=== PATIENT | female | born 1980 | race Hispanic/Latino ===

== ENCOUNTER 2017-11-14 02:11 | Observation (INO) | payer SELFPAY ==
[2017-11-14] MEDS ORDERED: ONDANSETRON 4 MG/2 ML VIAL ONE (02:39)
[2017-11-14] MEDS ORDERED: MORPHINE 10 MG/ML VIAL ONE (02:39)
[2017-11-14 02:51] LABS: Absolute Lymphocytes (CBC) 2.5 K/uL (0.7-4.9); Absolute Monocytes 0.7 K/uL (0.1-1.3); Basophils % 0.4 % (0-1.3); Eosinophils % 1.2 % (0-4.4); Hematocrit 41.8 % (36.0-45.0); Lymphocytes % 29.9 % (15.3-44.8); MCV 88.1 fL (80-100); MPV 10.3 fL (7.6-11.3); RBC Red Blood Cell Count 4.75 M/uL (3.86-4.86)
[2017-11-14 02:55] LABS: Bicarbonate 25 mEq/L (21-31); Glucose Level 105 mg/dL (65-120); Lipase 36 U/L (22-51); Potassium 3.7 mEq/L (3.6-5.0); Sodium Level 135 mEq/L (135-145)
[2017-11-14 02:56] LABS: Urine Blood NEGATIVE (NEG); Urine Glucose NEGATIVE (NEG); Urine Protein NEGATIVE (NEG); Urine Specific Gravity 1.015 (1.005-1.030)
[2017-11-14 02:56] LABS: Urine Bacteria <20 /HPF (<20); Urine Culture Reflex Order NOT NEEDED; Urine RBC NONE SEEN /HPF (NONE SEEN)
[2017-11-14 03:02] LABS: ALT/SGPT 25 IU/L (10-60); AST/SGOT 24 IU/L (10-42); Albumin 4.1 g/dL (3.2-5.5); Alkaline Phosphatase 56 IU/L (42-121); BUN Blood Urea Nitrogen 12 mg/dL (6-20); Bilirubin Direct 0.1 mg/dL (0-0.2); Bilirubin Total 0.5 mg/dL (0.3-1.2); Protein, Total 7.8 g/dL (6.0-8.3)
[2017-11-14] MEDS ORDERED: MAGNE/ALUM HYDROXD 30 ML UCUP ONE (04:55)
--- NOTE | 2017-11-14 05:47 | EDPHYS ---
Physician Documentation [facility] Name: Latanya Mayfield Age: 37 yrs Sex: Female : 1980 Arrival Date: 11/14/2017 Time: 02:22 Bed 17 Private MD: ED Physician Hussein Caal HPI: 11/14 05:20 This 37 yrs old Female presents to ER via EMS with unknown complaint. gs 05:20 The patient presents with abdominal pain in the right upper quadrant. Onset: The gs symptoms/episode began/occurred yesterday. The symptoms do not radiate. Associated signs and symptoms: Pertinent positives: nausea. The symptoms are described as sharp. Modifying factors: The symptoms are alleviated by nothing, the symptoms are aggravated by food. Severity of pain: At its worst the pain was severe in the emergency department the pain has improved mildly. The patient has experienced similar episodes in the past, several times. dx gallstones. 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 - Social history:: Smoking status: Patient/guardian denies using tobacco. ROS: 05:43 All other systems are negative. gs Exam: 05:43 Head/Face: Normocephalic, atraumatic. Eyes: Pupils equal round and reactive to light, gs extra-ocular motions intact. Lids and lashes normal. Conjunctiva and sclera are non-icteric and not injected. Cornea within normal limits. Periorbital areas with no swelling, redness, or edema. ENT: Nares patent. No nasal discharge, no septal abnormalities noted. Tympanic membranes are normal and external auditory canals are clear. Oropharynx with no redness, swelling, or masses, exudates, or evidence of obstruction, uvula midline. Mucous membranes moist. Neck: Trachea midline, no thyromegaly or masses palpated, and no cervical lymphadenopathy. Supple, full range of motion without nuchal rigidity, or vertebral point tenderness. No Meningismus. Chest/axilla: Normal chest wall appearance and motion. Nontender with no deformity. No lesions are appreciated. Cardiovascular: Regular rate and rhythm with a normal S1 and S2. No gallops, murmurs, or rubs. Normal PMI, no JVD. No pulse deficits. Respiratory: Lungs have equal breath sounds bilaterally, clear to auscultation and percussion. No rales, rhonchi or wheezes noted. No increased work of breathing, no retractions or nasal flaring. Back: No spinal tenderness. No costovertebral tenderness. Full range of motion. Skin: Warm, dry with normal turgor. Normal color with no rashes, no lesions, and no evidence of cellulitis. MS/ Extremity: Pulses equal, no cyanosis. Neurovascular intact. Full, normal range of motion. Neuro: Awake and alert, GCS 15, oriented to person, place, time, and situation. Cranial nerves II-XII grossly intact. Motor strength 5/5 in all extremities. Sensory grossly intact. Cerebellar exam normal. Normal gait. 05:43 Constitutional: The patient appears alert, awake. 05:43 Abdomen/GI: Palpation: moderate abdominal tenderness, in the right upper quadrant. Vital Signs: 02:15 BP 137 / 86; Pulse 64; Resp 18 S; Temp 97.8(TE); Pulse Ox 97% on R/A; Weight 99.79 kg; ea Height 5 ft. 5 in. (165.10 cm); Pain 10/10; 03:17 BP 107 / 62; Pulse 64; Resp 18; Temp 97.4; Pulse Ox 98% on R/A; Pain 2/10; ag2 03:28 Pain 2/10; ea 04:53 BP 109 / 65; Pulse 67; Resp 18; Pulse Ox 100% on R/A; Pain 5/10; ag2 05:14 BP 160 / 68; Pulse 70; Resp 18 S; Pulse Ox 98% on R/A; ea 07:15 BP 129 / 72; Pulse 57; Resp 18; Pulse Ox 100% on R/A; ph 08:17 BP 122 / 78; Pulse 54; Resp 18; Temp 97.9; Pulse Ox 100% on R/A; ph 02:15 Body Mass Index 36.61 (99.79 kg, 165.10 cm) ea MDM: 02:33 Patient medically screened. 05:43 Differential diagnosis: bowel obstruction, cholecystitis, Cholelithiasis, gs gastroesophageal reflux disease. Data reviewed: vital signs, nurses notes. Response to treatment: the patient's symptoms have mildly improved after treatment, and as a result, I will admit patient. 11/14 02:34 Order name: Basic Metabolic Panel; Complete Time: 03:58 11/14 02:34 Order name: CBC with Diff; Complete Time: 03:58 11/14 02:34 Order name: Hepatic Function; Complete Time: 03:58 gs 11/14 02:34 Order name: Lipase; Complete Time: 03:58 11/14 02:34 Order name: Urine Microscopic Only; Complete Time: 03:58 11/14 02:50 Order name: Urine Dipstick--Ancillary (enter results) [facility] 11/14 02:34 Order name: Urine Test (obtain specimen); Complete Time: 02:53 11/14 02:34 Order name: IV Saline Lock; Complete Time: 02:47 11/14 02:50 Order name: Urine --Ancillary (enter results); Complete Time: 03:58 [facility] 11/14 02:51 Order name: Urine Dipstick-Ancillary; Complete Time: 03:58 EDMS 11/14 05:47 Order name: US Abdomen Limited 11/14 02:34 Order name: Labs collected and sent; Complete Time: 02:47 11/14 02:34 Order name: Urine Dipstick-Ancillary (obtain specimen); Complete Time: 02:53 gs Administered Medications: 02:46 Drug: morphine 4 mg Route: IVP; Site: right antecubital; ea 03:28 Follow up: Pain 2/10 Adult; Response: No adverse reaction; Marked relief of symptoms; ea Pain is decreased 02:46 Drug: Zofran 4 mg Route: IVP; Site: right antecubital; ea 03:29 Follow up: Response: No adverse reaction ea 05:06 Drug: Maalox Suspension (200 mg-200 mg-20 mg/5 mL) 30 ml Route: PO; ea Disposition: 11/14/17 05:46 Hospitalization ordered by Karina Yates for Observation. Preliminary diagnosis are Colic, Cholecystitis. - Bed requested for Telemetry/MedSurg (observation). - Status is Observation. iw - Condition is Stable. - Problem is new. - Symptoms are unchanged. UTI on Admission? No Signatures: Dispatcher [employer] Eliana Dorado RN RN mw Williams, Irene, RN Coral Ortega RN RN ea Starr, Gregory, MD MD gs
--- NOTE | 2017-11-14 05:47 | ER ---
Nurse's Notes [facility] Name: Latanya Mayfield Age: 37 yrs Sex: Female : 1980 Arrival Date: 11/14/2017 Time: 02:22 Bed 17 Private MD: Diagnosis: Colic;Cholecystitis Presentation: 11/14 02:15 Presenting complaint: EMS states: Pt complaining of right upper and lower abdominal ea pain, pt reported having a history of gallstones. Transition of care: patient was not received from another setting of care. Onset of symptoms was November 14, 2017. Care prior to arrival: None. 02:15 Method Of Arrival: EMS: [facility] ea 02:15 Acuity: TONYA 3 ea Triage Assessment: 02:15 General: Appears uncomfortable, Behavior is cooperative, appropriate for age, restless. ea Pain: Complains of pain in right upper quadrant and right lower quadrant Pain currently is 10 out of 10 on a pain scale. Quality of pain is described as aching, Pain began 2 hours ago. Is continuous, Noted to be grimacing, moaning. EENT: No signs and/or symptoms were reported regarding the EENT system. Neuro: Level of Consciousness is awake, alert, obeys commands, Oriented to person, place, time, situation. Cardiovascular: Patient's skin is warm and dry. Respiratory: Airway is patent Respiratory effort is even, unlabored, Respiratory pattern is regular, symmetrical. GI: Abdomen is non-distended, Bowel sounds present X 4 quads. Abdomen is tender to palpation in right upper quadrant, left upper quadrant and right lower quadrant. : No signs and/or symptoms were reported regarding the genitourinary system. Derm: Skin is pink, warm \T\ dry. 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 - Social history:: Smoking status: Patient/guardian denies using tobacco. Screenin:30 Abuse screen: Denies threats or abuse. Nutritional screening: No deficits noted. ea Tuberculosis screening: No symptoms or risk factors identified. Fall Risk None identified. Assessment: 02:48 Reassessment: see triage assessment. ea 03:20 Reassessment: Patient laying in bed with eyes closed. No s/s of distress. Patient ag2 reports pain level 2/10. Family at bedside. bed locked and low, call light within reach. . 04:46 Reassessment: Patient and/or family updated on plan of care and expected duration. Pain ea level reassessed. Patient is alert, oriented x 3, equal unlabored respirations, skin warm/dry/pink. 05:17 Reassessment:. ea Vital Signs: 02:15 BP 137 / 86; Pulse 64; Resp 18 S; Temp 97.8(TE); Pulse Ox 97% on R/A; Weight 99.79 kg; ea Height 5 ft. 5 in. (165.10 cm); Pain 10/10; 03:17 BP 107 / 62; Pulse 64; Resp 18; Temp 97.4; Pulse Ox 98% on R/A; Pain 2/10; ag2 03:28 Pain 2/10; ea 04:53 BP 109 / 65; Pulse 67; Resp 18; Pulse Ox 100% on R/A; Pain 5/10; ag2 05:14 BP 160 / 68; Pulse 70; Resp 18 S; Pulse Ox 98% on R/A; ea 07:15 BP 129 / 72; Pulse 57; Resp 18; Pulse Ox 100% on R/A; ph 08:17 BP 122 / 78; Pulse 54; Resp 18; Temp 97.9; Pulse Ox 100% on R/A; ph 02:15 Body Mass Index 36.61 (99.79 kg, 165.10 cm) ea ED Course: 02:20 Inserted saline lock: 20 gauge in right antecubital area, using aseptic technique. ea Blood collected. 02:22 Patient arrived in ED. ea 02:25 Triage completed. ea 02:30 Patient has correct armband on for positive identification. Bed in low position. Call ea light in reach. Side rails up X2. 02:30 Arm band placed on right wrist. ea 02:33 Hussein Caal MD is Attending Physician. gs 02:35 Coral Rivas RN is Primary Nurse. ea 05:45 Karina Yates MD is Hospitalizing Provider. gs 06:51 Ultrasound completed. Patient tolerated well. aa4 Administered Medications: 02:46 Drug: morphine 4 mg Route: IVP; Site: right antecubital; ea 03:28 Follow up: Pain 2/10 Adult; Response: No adverse reaction; Marked relief of symptoms; ea Pain is decreased 02:46 Drug: Zofran 4 mg Route: IVP; Site: right antecubital; ea 03:29 Follow up: Response: No adverse reaction ea 05:06 Drug: Maalox Suspension (200 mg-200 mg-20 mg/5 mL) 30 ml Route: PO; ea Outcome: 05:46 Decision to Hospitalize by Provider. 08:47 Patient left the ED. iw Signatures: Yue Egan RN RN iw Frazier, Amanda aaGill Kaiser RN RN Coral Rivas RN RN ea Starr, Gregory, MD MD gs Garcia, Nikia ag2
--- NOTE | 2017-11-14 06:09 | P.HP ---
Certification for Inpatient Patient admitted to: Observation With expected LOS: <2 Midnights Practitioner: I am a practitioner with admitting privileges, knowledge of patient current condition, hospital course, and medical plan of care. Services: Services provided to patient in accordance with Admission requirements found in Title 42 Section 412.3 of the Code of Federal Regulations Patient History Date of Service: 11/14/17 Reason for admission: abdominal pain History of Present Illness: Ms Frantz Mayfield is a 37 years old woman with history of gallstones, who came to ED complaining of abdominal pain. The pain is located on RUQ, radiated to her right side of the back, associated with some nausea but not vomiting. Intensity of pain is 9/10, she has had this symptoms in the past. She denied fever or chills. Previous abdominal US in 08/18 showed a single large (2.5-3.0 cm ) gallstone. Lab work in ER shows normal WBC count, normal liver function without signs of biliary obstruction. Allergies No Known Allergies Allergy (Unverified 08/15/17 22:36) - Past Medical/Surgical History -: gallstones -: - Family History Family History: Reviewed- Non-Contributory - Social History Smoking Status: Never smoker Alcohol use: No CD- Drugs: No Caffeine use: Yes Place of Residence: Home Review of Systems 10-point ROS is otherwise unremarkable Physical Examination - Physical Exam General: Alert, In no apparent distress HEENT: Atraumatic, PERRLA, Mucous membr. moist/pink, EOMI, Sclerae nonicteric Neck: Supple, 2+ carotid pulse no bruit, No LAD, Without JVD or thyroid abnormality Respiratory: Clear to auscultation bilaterally, Normal air movement Cardiovascular: Regular rate/rhythm, Normal S1 S2 Gastrointestinal: Normal bowel sounds, Tenderness (Tender to palpation on RUQ) Musculoskeletal: No tenderness Integumentary: No rashes Neurological: Normal speech, Normal strength at 5/5 x4 extr, Normal tone, Normal affect Lymphatics: No axilla or inguinal lymphadenopathy - Studies Laboratory Data (last 24 hrs) 11/14/17 02:33: WBC 8.2, Hgb 13.8, Hct 41.8, Plt Count 239 11/14/17 02:33: Sodium 135, Potassium 3.7, BUN 12, Creatinine 0.58, Glucose 105 , Total Bilirubin 0.5, AST 24, ALT 25, Alkaline Phosphatase 56, Lipase 36 Assessment and Plan - Problems (Diagnosis) (1) Abdominal pain Current Visit: Yes Status: Acute Qualifiers: Abdominal location: right lower quadrant Qualified Code(s): R10.31 - Right lower quadrant pain (2) Cholelithiasis Current Visit: Yes Status: Acute Qualifiers: Cholelithiasis location: gallbladder Cholecystitis presence: without cholecystitis Biliary obstruction: without biliary obstruction Qualified Code(s): K80.20 - Calculus of gallbladder without cholecystitis without obstruction - Plan The patient will be admitted to the hospital due to symptomatic gallstone. There is no laboratory signs of biliary obstruction. She is afebrile, and WBC count are normal. Pending abdominal US. Will consult surgery team. Keep the patient NPO for potential surgical procedure. Continue symptomatic medication for pain and nausea. - Advance Directives Does patient have a Living Will: No Does patient have a Durable POA for Healthcare: No - Code Status/Comfort Care Code Status Assessed: Yes Code Status: Full Code
--- NOTE | 2017-11-14 08:52 | RAD REPORT ---
EXAM DESCRIPTION: US - Abdomen Exam Limited - 11/14/2017 6:54 am CLINICAL HISTORY: Abdominal pain. COMPARISON: 08/15/2017 FINDINGS: The gallbladder demonstrates shadowing gallstones. No pericholecystic fluid or gallbladder wall thickening. The common bile duct is normal measuring 4 mm. The liver demonstrates no findings of intrahepatic biliary dilatation. IMPRESSION: Cholelithiasis.
[2017-11-14] MEDS: NA CHLORIDE 0.9% 1,000 ML IV SCH ×2 (09:04→18:35)
[2017-11-14] MEDS: KETOROLAC 30 MG/ML INJ IV PRN (09:04)
--- NOTE | 2017-11-14 11:40 | PN ---
Date of Progress Note: 11/14/2017 Subjective: The patient is seen and examined, chart reviewed, and case discussed with RN. The patie nt states that she is still having pain in her right upper quadrant. No nausea or vomiting. Review of Systems: Negative except as above. Medications: Reviewed. Physical Examination: Vital Signs: Temperature 97.6, heart rate 55, blood pressure 115/73, respirations 18, O2 100% on carol m air. General: Awake, alert, oriented x3, in some mild distress. Obese female, BMI 36.6. CV: S1, S2. No murmurs. Regular rate and rhythm. Peripheral pulses present bilaterally. Respiratory: Moving air well bilaterally. No wheezing. Gastrointestinal: Abdomen is soft, nontender, and nondistended. Positive bowel sounds. Extremities: No clubbing, cyanosis, edema. Neurologic: Nonfocal. Diagnostic Data: Abdominal ultrasound shows cholelithiasis. No intrahepatic biliary dilatation. Assessment And Plan: A 37-year-old female with: 1.Right upper quadrant abdominal pain, likely secondary to cholelithiasis. Surgery has been consult ed. 2.Cholelithiasis, acute, without cholecystitis or biliary obstruction. The patient counseled on t modification, Surgery consultation. The patient will likely need cholecystectomy. 3.Obesity, BMI 36.6. Plan: Continue IV fluids, n.p.o. until evaluated by Surgery. IV antiemetics and pain control. /ROMI Voice ID: [id number] Report ID: [id number]
[2017-11-14] MEDS ORDERED: MORPHINE 4 MG/ML SYR IV PRN (14:29)
[2017-11-14] MEDS: PIPER/TAZO/NS 3.375gm 3.375 GM/100 ML BAG IVPB SCH (15:22)
[2017-11-14] MEDS: ONDANSETRON 4 MG/2 ML VIAL IV PRN (15:23)
[2017-11-14] MEDS: MEPERIDINE HCL 25 MG/0.5 ML IV PRN (19:57)
--- NOTE | 2017-11-14 21:49 | CON ---
Date of Consultation: 11/14/2017 Brief History Of Present Illness: The patient is a 37-year-old female, who presents with a history of gallstones, who had last gallbladder attack approximately 3 months ago and was taken care by Dr. Kyle at that time. She was seen in the emergency room and ultimately was requested to have a cholecystectomy, however, she had not chosen to do so in between that interval time. She now pres ents with similar episodes beginning approximately 11 o'clock last night after eating fried [place]ian f ood last evening. She states the pain was sharp, stabbing in the right upper quadrant with some radi ation through to her back. No nausea. No vomiting. No change in bowel or bladder habits. No fever , chills, or other constitutional complaints. She states the pain is intense and has not gotten sign ificantly better with ketorolac given in the ER. She had a previous abdominal ultrasound on 08/18, w hich showed a single large approximately 3-cm gallstone. Past Medical History: Significant for gallstones. Past Surgical History: She has had a . Allergies: NO KNOWN DRUG ALLERGIES. Medications: None. Smoking: She denies smoking, alcohol, or recreational drug use. Family History: Noncontributory. Review of Systems: A 10-point review of systems in HPI, denies. Physical Examination: Vital Signs: At the time of my examination, her BMI is 36.6, her vital signs are a blood pressure of 105/59, pulse is 62, respiratory rate 18, temperature 98.0. General: She is awake, alert, oriented. Psychiatric: She is appropriate, conversive. HEENT: She is normocephalic. Her sclerae are anicteric. Her mucous membranes are moist. Oropharyn x clear. Neck: Supple. No JVD. Chest: Normal expansion and excursion. Cardiovascular: Regular rhythm. Pulmonary: Clear to auscultation bilaterally. Abdomen: Soft with mild epigastric and right upper quadrant tenderness to palpation. Negative Bradley y sign. No rebound. No guarding. Focal peritonitis appreciated. Her abdomen is generally obese. Extremities: No clubbing, cyanosis, or edema. Skin: Warm and dry and there is no jaundice or discoloration. Laboratory Data: Her laboratory exam reveals a white blood count of 8.2, hemoglobin is 13.8, hematoc rit of 41.9, platelet count is 239, neutrophils are normal at 60.5, lymphocytes 29.9. Her sodium 135 , potassium 3.7, chloride 100, carbon dioxide 25, BUN 12, creatinine 0.58, glucose is 105, total bili chandler 0.5, direct component 0.8, AST 24, ALT is 25, alkaline phosphatase is 56. Her lipase is 36. H er UA was essentially negative and urine test was also negative. She had imaging performed , which included an abdominal ultrasound, which was officially read by Dr. Sumner as the gallbladder de monstrates shadowing gallstones. No pericholecystic fluid or gallbladder wall thickening. The commo n bile duct is normal, measuring 4 mm. The liver demonstrates no findings of intrahepatic biliary du ct dilatation. The official impression is cholelithiasis. Assessment And Plan: This is a 37-year-old female, who presents with signs and symptoms of biliary c olic. 1.IV fluid hydration. 2.Serial abdominal exams. 3.The patient's pain is improving since her admission and as such I recommend discharging the patien t on a gallbladder diet and request that she returns to my clinic within 1 week to discuss surgical p destin for a laparoscopic possible open cholecystectomy. I have explained the risks, benefits, and alternatives including, but not limited to bleeding, infection, damage to surrounding tissues, injury to bile ducts, intestines, need further operations and procedures. She agrees to proceed with this plan. However, I have explained also that should her symptoms worsen over the course of the day or d uring her time at the hospital or any laboratory values deviate to indicate an active cholecystitis, she would likely be better served by having surgery during this admission. She displayed understanding of above stated plan. Thank you for this interesting consult. NIKKI/ROMI Voice ID: [id number] Report ID: [id number]
[2017-11-15] MEDS: PIPER/TAZO/NS 3.375gm 3.375 GM/100 ML BAG IVPB SCH ×3 (01:02→17:00)
[2017-11-15] MEDS: ACETAMINOPHEN 500 MG TAB PO PRN ×2 (04:17→10:42)
[2017-11-15] MEDS: NA CHLORIDE 0.9% 1,000 ML IV SCH ×2 (04:18→14:53)
[2017-11-15 05:08] LABS: Absolute Lymphocytes (CBC) 1.2 K/uL (0.7-4.9); Absolute Monocytes 0.4 K/uL (0.1-1.3); Absolute Neutrophil 6.6 K/uL (1.8-8.0); Basophils % 0.1 % (0-1.3); Eosinophils % 0.3 % (0-4.4); MCH 29.3 pg (27.0-35.0); MCV 88.1 fL (80-100); MPV 9.8 fL (7.6-11.3); Monocytes % 5.2 % (3.3-12.3); RBC Red Blood Cell Count 4.43 M/uL (3.86-4.86)
[2017-11-15 05:41] LABS: ALT/SGPT 22 IU/L (10-60); AST/SGOT 21 IU/L (10-42); Albumin 3.5 g/dL (3.2-5.5); Alkaline Phosphatase 54 IU/L (42-121); BUN Blood Urea Nitrogen 12 mg/dL (6-20); Bicarbonate 26 mEq/L (21-31); Bilirubin Total 0.6 mg/dL (0.3-1.2); Glucose Level 92 mg/dL (65-120); Potassium 3.7 mEq/L (3.6-5.0); Protein, Total 6.9 g/dL (6.0-8.3); Sodium Level 138 mEq/L (135-145)
[2017-11-15] MEDS: KETOROLAC 30 MG/ML INJ IV PRN ×2 (07:56→14:39)
[2017-11-15] MEDS: ONDANSETRON 4 MG/2 ML VIAL IV PRN ×2 (08:00→15:59)
[2017-11-15] MEDS: MEPERIDINE HCL 25 MG/0.5 ML IV PRN ×2 (12:02→15:51)
--- NOTE | 2017-11-16 07:22 | DS ---
Date of Discharge: 11/15/2017 Consultants: Dr. Hampton surgery. Procedures: None. Admitting Diagnoses: 1.Right upper quadrant abdominal pain. 2.Cholelithiasis. Discharge Diagnoses: 1.Cholelithiasis without cholecystitis without obstruction. 2.Right upper quadrant abdominal pain secondary to above, resolved. 3.Obesity, BMI 36.6. Hospital Course: The patient is a 37-year-old female who came into the hospital with abdominal pain and had an another gallbladder attack. The patient had previous history of gallstones and did not fo llow up with Dr. Kyle as an outpatient. Dr[place], and therefore, Dr. Ko blue was consulted. The patient's ultrasound on 08/18/2017 showed a large gallstone. Ultrasound wa s repeated, which showed a 4 mm common bile duct and some gallstones. There was no cholecystitis. T he patient was kept n.p.o. and given IV fluids and IV pain medications. Her liver enzymes and biliru bin were normal and stayed normal the following day. The patient's pain subsided. She was counseled extensively on losing weight and avoiding any fried fatty foods. She voiced understanding. She was seen by Dr. Hampton, who recommended outpatient cholecystectomy. The patient was then cleared for d ischarge. She was able to tolerate her diet and was discharged home in a stable condition. Activities: As tolerated. Diet: [place]. Followup: 1.Follow up with primary care physician in 2-3 days. 2.Follow up with general surgeon, Dr. Hampton in 1 week. Return to ER for worsening condition. Medications: As per medication reconciliation list. Physical Examination: General: Awake, alert, oriented, in no acute distress. CV: S1, S2. No murmurs. Respiratory: Clear to auscultation bilaterally. No wheezing. Abdomen: Abdomen is soft, nontender, nondistended. Positive bowel sounds. Extremities: No clubbing, cyanosis, or edema. Neurologic: Nonfocal. SA/MODL Voice ID: [id number] Report ID: [id number]
== END 2017-11-15 17:55 | disposition home or self-care (01) ==
LOC: ER 02:11 → ERHOLD 05:56 → 4TH 08:43
PROVIDERS: ADMIT Internal Medicine; ATTEND Internal Medicine
DX: K80.20 Calculus of gallbladder without cholecystitis without obstruction (principal); E66.9 Obesity, unspecified; Z68.36 Body mass index [BMI] 36.0-36.9, adult
CPT/HCPCS: 36415; 76705; 80048; 80053; 80076; 81003; 81015; 81025; 83690; 85025; 96374; 96375; 99284; G0378; J2175; J2405; J2543; J7030

== ENCOUNTER 2018-06-07 20:07 | Emergency (ER) | payer SELFPAY ==
[2018-06-07 20:58] LABS: Urine Blood NEGATIVE (NEG); Urine Glucose NEGATIVE (NEG); Urine Protein NEGATIVE (NEG); Urine pH 6.5 (5.0-7.0)
[2018-06-07 21:31] LABS: Absolute Lymphocytes (CBC) 2.8 K/uL (0.7-4.9); Absolute Monocytes 0.8 K/uL (0.1-1.3); Absolute Neutrophil 6.1 K/uL (1.8-8.0); Basophils % 0.6 % (0-1.3); Hematocrit 38.3 % (36.0-45.0); Lymphocytes % 28.3 % (15.3-44.8); MCV 87.7 fL (80-100); MPV 9.7 fL (7.6-11.3); RBC Red Blood Cell Count 4.36 M/uL (3.86-4.86)
--- NOTE | 2018-06-07 21:43 | RAD REPORT ---
EXAM DESCRIPTION: US - Abdomen Exam Limited - 06/07/2018 8:52 pm CLINICAL HISTORY: Abdominal pain COMPARISON: None. FINDINGS: Multiple large mobile gallstones are present reaching 3 cm in size. No significant sludge identifiable. There is no wall thickening or pericholecystic fluid. No common duct stone or biliary tree dilatation identified. IMPRESSION: Multiple large mobile gallstones up to 3 cm in size. No wall thickening, pericholecystic fluid or biliary tree abnormality.
[2018-06-07 21:53] LABS: ALT/SGPT 30 U/L (12-78); AST/SGOT 18 U/L (15-37); Albumin 3.7 g/dL (3.4-5.0); Alkaline Phosphatase 64 U/L (45-117); BUN Blood Urea Nitrogen 14 mg/dL (7-18); Bicarbonate 25 mmol/L (21-32); Bilirubin Direct < 0.1 mg/dL (0-0.2); Bilirubin Total 0.3 mg/dL (0.2-1.0); Glucose Level 94 mg/dL (74-106); Lipase 185 U/L (73-393); Potassium 3.8 mmol/L (3.5-5.1); Protein, Total 7.7 g/dL (6.4-8.2); Sodium Level 138 mmol/L (136-145)
[2018-06-07] MEDS ORDERED: KETOROLAC 30 MG/ML INJ ONE (21:56)
--- NOTE | 2018-06-07 22:06 | ER ---
Nurse's Notes [facility] Name: Latanya Mayfield Age: 37 yrs Sex: Female : 1980 Arrival Date: 06/07/2018 Time: 20:09 Bed 13 Private MD: Diagnosis: Cholelithiasis Presentation: 06/07 20:20 Presenting complaint: Friend states: RUQ abdominal pain that radiates to the back. aj1 Describes pain as a burning pain. States that she has been diagnosed with gallstones in the past, but has not been able to have her gallbladder removed. States the pain is in the same place as her previous attacks, but the pain is worse this time. Denies N/V/D. Reports dizziness. Transition of care: patient was not received from another setting of care. Onset of symptoms was June 04, 2018. Risk Assessment: Do you want to hurt yourself or someone else? Patient reports no desire to harm self or others. Initial Sepsis Screen: Does the patient meet any 2 criteria? No. Patient's initial sepsis screen is negative. Does the patient have a suspected source of infection? Yes: Acute abdominal pain. Care prior to arrival: None. 20:20 Method Of Arrival: Ambulatory aj1 20:20 Acuity: TONYA 3 aj1 Triage Assessment: 20:22 General: Appears uncomfortable, Behavior is calm, cooperative, appropriate for age. aj1 Pain: Complains of pain in right upper quadrant Pain radiates to back Pain currently is 10 out of 10 on a pain scale. Neuro: Level of Consciousness is awake, alert, obeys commands. Cardiovascular: Patient's skin is warm and dry. Respiratory: Airway is patent Respiratory effort is even, unlabored, Respiratory pattern is regular, symmetrical. 22:55 Injury Description: none. 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 - Social history:: Smoking status: Patient/guardian denies using tobacco. - Ebola Screening: : Patient denies travel to an Ebola-affected area in the 21 days before illness onset. Screenin:30 Abuse screen: Denies threats or abuse. Nutritional screening: No deficits noted. tl3 Tuberculosis screening: No symptoms or risk factors identified. Fall Risk None identified. Assessment: 20:30 General: Appears distressed, uncomfortable, well groomed, well developed, well tl3 nourished, Behavior is calm, cooperative, appropriate for age. Pain: Complains of pain in back and abdomen and right upper quadrant Pain currently is 10 out of 10 on a pain scale. Neuro: No deficits noted. Level of Consciousness is awake, alert, obeys commands, Oriented to person, place, time, situation, Appropriate for age. Cardiovascular: Patient's skin is warm and dry. Respiratory: Airway is patent Respiratory effort is even, unlabored, Respiratory pattern is regular, symmetrical. GI: Reports upper abdominal pain, since three days. : No signs and/or symptoms were reported regarding the genitourinary system. EENT: No signs and/or symptoms were reported regarding the EENT system. Derm: No signs and/or symptoms reported regarding the dermatologic system. Musculoskeletal: No signs and/or symptoms reported regarding the musculoskeletal system. 21:58 Reassessment: No changes from previously documented assessment. Patient and/or family tl3 updated on plan of care and expected duration. Pain level reassessed. Patient is alert, oriented x 3, equal unlabored respirations, skin warm/dry/pink. 22:39 Reassessment: No changes from previously documented assessment. Patient and/or family tl3 updated on plan of care and expected duration. Pain level reassessed. Patient is alert, oriented x 3, equal unlabored respirations, skin warm/dry/pink. 22:56 Reassessment: pt awaiting transportation, related to pain meds administered. tl3 Vital Signs: 20:22 BP 136 / 87; Pulse 87; Resp 18; Temp 97.6; Pulse Ox 100% on R/A; Weight 102.06 kg (R); aj1 Pain 10/10; 20:30 BP 148 / 85; Pulse 55; Resp 18; Pulse Ox 100% on R/A; tl3 21:58 BP 126 / 86; Pulse 82; Resp 18; Pulse Ox 100% on R/A; tl3 22:39 BP 128 / 84; Pulse 80; Resp 18; Pulse Ox 99% on R/A; tl3 ED Course: 20:09 Patient arrived in ED. al2 20:21 Triage completed. aj1 20:22 Arm band placed on Patient placed in an exam room. aj1 20:26 Alyson Cohen FNP-C is PHCP. kb 20:26 Darren Bower MD is Attending Physician. kb 20:30 Patient has correct armband on for positive identification. tl3 20:30 No provider procedures requiring assistance completed. tl3 20:35 Keya Gomes, RN is Primary Nurse. tl3 20:52 US Abdomen Limited In Process Unspecified. EDMS 20:52 Ultrasound completed. Patient tolerated well. Patient moved back from ultrasound. cy 21:24 Initial lab(s) drawn, by me, sent to lab. Inserted saline lock: 20 gauge in right aj1 antecubital area, using aseptic technique. Blood collected. 21:34 PHCP role handed off by Alyson Cohen FNP-C snw 21:34 Colleen Benavidez FNP-C is PHCP. snw 22:39 IV discontinued, intact, bleeding controlled, No redness/swelling at site. Pressure tl3 dressing applied. Administered Medications: 21:53 Drug: TORadol 30 mg Route: IVP; Infused Over: 2 mins; Site: right antecubital; tl3 22:34 Follow up: Response: No adverse reaction tl3 22:32 Drug: fentaNYL (PF) 25 mcg Route: IVP; Infused Over: 2 mins; Site: right antecubital; tl3 22:53 Follow up: Response: Medication administered at discharge. tl3 Outcome: 22:06 Discharge ordered by . snw 22:39 Discharged to home ambulatory. tl3 22:39 Condition: stable 22:39 Discharge instructions given to patient, family, Instructed on discharge instructions, follow up and referral plans. medication usage, Demonstrated understanding of instructions, follow-up care, medications, Prescriptions given X 2. 23:06 Patient left the ED. tl3 Signatures: Dispatcher [employer] EDNH Alyson Cohen FNP-C FNP-Rin Dudley, RN RN aj1 Colleen Benavidez FNP-C FNP-CsnLidia Massey Angelica al2 Keya Gomes, RN RN tl3
--- NOTE | 2018-06-07 22:06 | EDPHYS ---
Physician Documentation [facility] Name: Latanya Mayfield Age: 37 yrs Sex: Female : 1980 Arrival Date: 06/07/2018 Time: 20:09 Bed 13 Private MD: ED Physician Darren Bower HPI: 06/07 20:32 This 37 yrs old Female presents to ER via Ambulatory with complaints of Low kb Back Pain, Abdominal Pain. 20:32 The patient presents with abdominal pain in the right upper quadrant. Onset: The kb symptoms/episode began/occurred 3 day(s) ago. The symptoms radiate to right back. Associated signs and symptoms: Pertinent positives: nausea. The symptoms are described as intermittent, sharp. Modifying factors: The symptoms are alleviated by nothing, the symptoms are aggravated by nothing. Severity of pain: At its worst the pain was moderate in the emergency department the pain is unchanged. The patient has experienced similar episodes in the past, several times. The patient has not recently seen a physician. 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 - Social history:: Smoking status: Patient/guardian denies using tobacco. - Ebola Screening: : Patient denies travel to an Ebola-affected area in the 21 days before illness onset. ROS: 20:31 Constitutional: Negative for fever, chills, and weight loss, Cardiovascular: Negative kb for chest pain, palpitations, and edema, Respiratory: Negative for shortness of breath, cough, wheezing, and pleuritic chest pain, Back: Negative for injury and pain, MS/Extremity: Negative for injury and deformity, Skin: Negative for injury, rash, and discoloration, Neuro: Negative for headache, weakness, numbness, tingling, and seizure. 20:31 Abdomen/GI: Positive for abdominal pain, nausea, Negative for diarrhea, constipation, abdominal cramps. Exam: 20:31 Constitutional: This is a well developed, well nourished patient who is awake, alert, kb and in no acute distress. Head/Face: Normocephalic, atraumatic. Neck: Trachea midline, no thyromegaly or masses palpated, and no cervical lymphadenopathy. Supple, full range of motion without nuchal rigidity, or vertebral point tenderness. No Meningismus. Chest/axilla: Normal chest wall appearance and motion. Nontender with no deformity. No lesions are appreciated. Cardiovascular: Regular rate and rhythm with a normal S1 and S2. No gallops, murmurs, or rubs. Normal PMI, no JVD. No pulse deficits. Respiratory: Lungs have equal breath sounds bilaterally, clear to auscultation and percussion. No rales, rhonchi or wheezes noted. No increased work of breathing, no retractions or nasal flaring. Skin: Warm, dry with normal turgor. Normal color with no rashes, no lesions, and no evidence of cellulitis. MS/ Extremity: Pulses equal, no cyanosis. Neurovascular intact. Full, normal range of motion. Neuro: Awake and alert, GCS 15, oriented to person, place, time, and situation. Cranial nerves II-XII grossly intact. Motor strength 5/5 in all extremities. Sensory grossly intact. Cerebellar exam normal. Normal gait. 20:31 Abdomen/GI: Inspection: abdomen appears normal, Bowel sounds: normal, in all quadrants, Palpation: soft, in all quadrants, moderate abdominal tenderness, in the right upper quadrant. Vital Signs: 20:22 BP 136 / 87; Pulse 87; Resp 18; Temp 97.6; Pulse Ox 100% on R/A; Weight 102.06 kg (R); aj1 Pain 10/10; 20:30 BP 148 / 85; Pulse 55; Resp 18; Pulse Ox 100% on R/A; tl3 21:58 BP 126 / 86; Pulse 82; Resp 18; Pulse Ox 100% on R/A; tl3 22:39 BP 128 / 84; Pulse 80; Resp 18; Pulse Ox 99% on R/A; tl3 MDM: 20:26 Patient medically screened. kb 20:31 Data reviewed: vital signs, nurses notes. Data interpreted: Pulse oximetry: on room air kb is 100 %. Interpretation: normal. 21:23 Counseling: I had a detailed discussion with the patient and/or guardian regarding: the kb historical points, exam findings, and any diagnostic results supporting the discharge/admit diagnosis, lab results, radiology results, the need for outpatient follow up, a general surgeon, to return to the emergency department if symptoms worsen or persist or if there are any questions or concerns that arise at home. 06/07 20:26 Order name: Basic Metabolic Panel; Complete Time: 21:55 kb 06/07 20:26 Order name: CBC with Diff; Complete Time: 21:34 kb 06/07 20:26 Order name: Hepatic Function; Complete Time: 21:55 kb 06/07 20:26 Order name: Lipase; Complete Time: 21:55 kb 06/07 20:49 Order name: Urine Dipstick--Ancillary (enter results); Complete Time: 21:14 mt 06/07 20:10 Order name: Urine Test (obtain specimen); Complete Time: 20:35 snw 06/07 20:10 Order name: Urine Dipstick-Ancillary (obtain specimen); Complete Time: 20:35 snw 06/07 20:26 Order name: US Abdomen Limited; Complete Time: 21:47 kb 06/07 20:26 Order name: IV Saline Lock; Complete Time: 21:24 kb 06/07 20:26 Order name: Labs collected and sent; Complete Time: 21:24 kb 06/07 20:49 Order name: Urine --Ancillary (enter results); Complete Time: 21:14 mt Administered Medications: 21:53 Drug: TORadol 30 mg Route: IVP; Infused Over: 2 mins; Site: right antecubital; tl3 22:34 Follow up: Response: No adverse reaction tl3 22:32 Drug: fentaNYL (PF) 25 mcg Route: IVP; Infused Over: 2 mins; Site: right antecubital; tl3 22:53 Follow up: Response: Medication administered at discharge. tl3 Disposition: 06/08 17:04 Co-signature as Attending Physician, Darren Bower MD I agree with the assessment and wa plan of care. Disposition: 06/07/18 22:06 Discharged to Home. Impression: Cholelithiasis. - Condition is Stable. - Discharge Instructions: Cholelithiasis, [id number], Fat and Cholesterol Restricted Diet. - Prescriptions for Bentyl 20 mg Oral Tablet - take 1 tablet by ORAL route every 6 hours As needed; 20 tablet. Zofran 4 mg Oral Tablet - take 1 tablet by ORAL route every 6 hours As needed; 20 tablet. - Medication Reconciliation Form, Thank You Letter, Antibiotic Education, Prescription Opioid Use form. - Follow up: Emergency Department; When: As needed; Reason: Worsening of condition. Follow up: Private Physician; When: 2 - 3 days; Reason: Recheck today's complaints, Continuance of care, Re-evaluation by your physician. Signatures: Dispatcher [employer] EDMS Alyson Cohen, MARITAC ZIGZAG TOPSTITCHER-Ckb Rin Mcknight, RN RN aj1 Colleen Benavidez FNP-C FNP-Csnw Darren Bower MD MD wa Lowrey, Tammy, EVERETTE RN tl3 Corrections: (The following items were deleted from the chart) 06/07 23:06 22:06 06/07/2018 22:06 Discharged to Home. Impression: Cholelithiasis. Condition is tl3 Stable. Discharge Instructions: Cholelithiasis, [id number]. Prescriptions for Bentyl 20 mg Oral Tablet - take 1 tablet by ORAL route every 6 hours As needed; 20 tablet, Zofran 4 mg Oral Tablet - take 1 tablet by ORAL route every 6 hours As needed; 20 tablet. and Forms are Medication Reconciliation Form, Thank You Letter, Antibiotic Education, Prescription Opioid Use. Follow up: Emergency Department; When: As needed; Reason: Worsening of condition. Follow up: Private Physician; When: 2 - 3 days; Reason: Recheck today's complaints, Continuance of care, Re-evaluation by your physician. snw
[2018-06-07] MEDS ORDERED: FENTANYL CITR 100 MCG/2 ML ONE (22:28)
== END 2018-06-07 23:06 | disposition home or self-care (01) ==
LOC: ER 20:07
DX: K80.20 Calculus of gallbladder without cholecystitis without obstruction (principal)
CPT/HCPCS: 36415; 76705; 80048; 80076; 81003; 81025; 83690; 85025; 96374; 96375; 99284; J3010

== ENCOUNTER 2021-06-13 08:08 | Emergency (ER) | payer OTHER, SELFPAY ==
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
[2021-06-13 10:39] VITALS: TEMP 98.2
[2021-06-13 10:40] VITALS: BP 121/76; O2SAT 99
== END 2021-06-13 10:24 | disposition home or self-care (01) ==
LOC: ER 08:08
DX: R10.31 Right lower quadrant pain (principal); V49.40XA Driver injured in collision with unspecified motor vehicles in traffic accident, initial encounter
CPT/HCPCS: 82565; 70450; 72125; 71260; 74177; 99284; Q9967